=== PATIENT | male | born 1970 | race Caucasian/White ===

== ENCOUNTER 2016-12-23 17:50 | Emergency (ER) | payer OTHER ==
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
== END 2016-12-23 19:29 | disposition disaster alternative care site (69) ==
LOC: GACC 17:50
DX: S32.019A Unspecified fracture of first lumbar vertebra, initial encounter for closed fracture (principal); S32.029A Unspecified fracture of second lumbar vertebra, initial encounter for closed fracture; S32.039A Unspecified fracture of third lumbar vertebra, initial encounter for closed fracture; S80.11XA Contusion of right lower leg, initial encounter; R07.89 Other chest pain; V49.9XXA Car occupant (driver) (passenger) injured in unspecified traffic accident, initial encounter; Y92.411 Interstate highway as the place of occurrence of the external cause
CPT/HCPCS: Q9967

== ENCOUNTER → 2016-12-23 | Outpatient (CLI) | payer OTHER | END | disposition disaster alternative care site (69) | LOC: GAMB 17:29 | DX: S59.912A Unspecified injury of left forearm, initial encounter (principal); S40.812A Abrasion of left upper arm, initial encounter; S80.01XA Contusion of right knee, initial encounter; M79.602 Pain in left arm; M79.604 Pain in right leg; M79.601 Pain in right arm; V49.9XXA Car occupant (driver) (passenger) injured in unspecified traffic accident, initial encounter | CPT/HCPCS: A0425; A0429 ==